=== PATIENT | female | born 1965 | race Two or more races ===

== ENCOUNTER 2025-06-07 07:19 | Emergency (ER) | payer MEDICAID, SELFPAY ==
[2025-06-07 07:32] VITALS: BP 158/77; PULSE 63; RESP 17; TEMP 36.8; O2SAT 95; BMI 24.0
[2025-06-07] MEDS: TETRACAINE PF OP SOL 0.5% 4 ML DRPETTE 1 DROP LEFT EYE (07:44)
[2025-06-07] MEDS: FLUORESCEIN SOD 1 MG STRP LEFT EYE (07:44)
--- NOTE | 2025-06-07 07:48 | EDNOTE_ITS ---
<Statement entered by Bailey Naranjo MD - 06/22/25 17:42> As co-signing physician, I was present and available for consult prn. I concur with the plan and care as documented by the midlevel provider. ED Eye Problem RME/HPI General Chief complaint: Eye Problems Stated complaint: SOMETHING WENT IN R) EYE Time Seen by Provider: 06/07/25 07:37 Arrival date/time: 06/07/25 07:19 60-year-old female presents to the emergency department today stating she got something in her right eye patient reports that she was doing yard work since yesterday and has had a foreign body sensation since yesterday Limitations: no limitations Related Data Previous Rx's ?Medication ?Instructions ?Recorded erythromycin 5 mg/gram (0.5 %) eye 1.25 cm ophthalmic (eye) QID 5 06/07/25 ointment days #3.5 grams Allergies Allergy/AdvReac Type Severity Reaction Status Date / Time No Known Allergies Allergy Verified 06/07/25 07:24 Review of Systems Review of Systems Systems Reviewed: All systems reviewed, normal except as documented Constitutional Constitutional: Reports system reviewed and no additional complaints, except as documented, Denies fever(s) and Denies headache(s) Eyes Eyes: Reports system reviewed and no additional complaints, except as documented, Denies blurry vision and Reports other (Foreign body sensation right eye) ENT Ears, Nose, Mouth, and Throat: Reports system reviewed and no additional complaints, except as documented, Denies headache(s), Denies nasal congestion and Denies nasal discharge Cardiovascular Cardiovascular: Reports system reviewed and no additional complaints, except as documented, Denies chest pain and Denies dyspnea Respiratory Respiratory: Reports system reviewed and no additional complaints, except as documented, Denies chest congestion, Denies cough and Denies dyspnea Gastrointestinal Gastrointestinal: Reports system reviewed and no additional complaints, except as documented and Denies abdominal pain Integumentary/Breasts Skin/Breast: Reports system reviewed and no additional complaints, except as documented and Denies rash Neurologic Neurologic: Reports system reviewed and no additional complaints, except as documented, Reports as per HPI and Denies headache(s) Past Medical History Social History SMOKING STATUS: Never smoker ED Exam General Limitations: Present no limitations General appearance: Present alert and in no apparent distress Head Head exam: Present atraumatic, normocephalic and normal inspection Eye Eye exam: Present PERRL and EOMI Expanded Eye Exam Eyelids: left: normal inspection Sclera/Conjunctival: right: foreign body ENT ENT exam: Present normal exam, normal oropharynx and mucous membranes moist Neck Neck exam: Present normal inspection, full ROM and trachea midline Chest Chest inspection: Present normal inspection and symmetric chest wall rise Respiratory Respiratory exam: Present normal lung sounds bilaterally Cardiovascular Cardiovascular exam: Present regular rate, normal rhythm and normal heart sounds Abdominal Exam Abdominal exam: Present soft and normal bowel sounds Extremities Exam Extremities exam: Present normal inspection and full ROM Back Exam Back exam: Present normal inspection and full ROM Neurological Exam Neurological exam: Present alert, oriented X3 and CN II-XII intact Psychiatric Psychiatric exam: Present normal affect and normal mood Skin Skin exam: Present warm, dry, intact and normal color Course Quality Measures none Orders Category Date Time Status ED Eye Irrigation ONCE Care 06/07/25 07:38 Completed Sandoval Lamp to Bedside X1 Care 06/07/25 07:38 Completed Fluorescein Sodium [Bio-Danuta] Med 06/07/25 07:38 Discontinued 1 mg LEFT EYE X1 ONE TETRACAINE Op Ivanna 0.5% [Pontocaine Op Ivanna 0.5%] Med 06/07/25 07:38 Discontinued 1 drop LEFT EYE X1 ONE Vital Signs Vital signs: Vital Signs Temperature 98.3 F 06/07/25 07:32 Pulse Rate 63 06/07/25 07:32 Respiratory Rate 17 06/07/25 07:32 Blood Pressure 158/77 H 06/07/25 07:32 Pulse Oximetry (%) 95 06/07/25 07:32 Oxygen Delivery Method Room Air 06/07/25 07:32 O2 saturation 95% room air within the limits PROCEDURES: Sandoval Lamp Exam Right eye: Flourescein uptake:: Yes Sandoval Lamp Findings: Other (Foreign body right eye) Additional comments: No abrasion or laceration Eye MDM Narrative MDM Narrative:: 60-year-old female presents to the emergency department today stating she got something in her right eye patient reports that she was doing yard work since yesterday and has had a foreign body sensation since yesterday Clinically patient well-appearing does not appear look toxic no acute distress Patient does have a foreign body in her right eye which was flushed out after anesthetizing the eye with tetracaine Sandoval lamp performed no acute lacerations abrasions noted pupil responses normal Patient reports no disturbances in vision reports complete relief of symptoms Patient discharged home in no distress to follow-up with primary care doctor in the next 24 to 48 hours and for any worsening symptoms to return to the ER immediately Patient data External records reviewed:: [facility] previous records Clinical information provided by:: patient Social determinants that could affect healthcare access:: none Patient has the following chronic illnesses:: See history How is presenting disease/condition affected by chronic disease/condition?: uneffected by Evaluation data The following diagnostics were reviewed and interpreted by me:: other (specify) Lab and/or radiology exams considered but not ordered:: Considered and not ordered Interpretation Summary: N/A Medications / Prescriptions Medications or Prescriptions considered but not ordered:: Given Medication administrations:: Medication Administration History Discontinued Medications Fluorescein Sodium (Fluorescein Sod 1 Mg Strp) 1 mg LEFT EYE X1 ONE Stop: 06/07/25 07:39 Last Admin: 06/07/25 07:44 Dose: 1 mg Documented By: DO Tetracaine HCl (Tetracaine Pf Op Ivanna 0.5% 4 Ml Drpette) 1 drop LEFT EYE X1 ONE Stop: 06/07/25 07:39 Last Admin: 06/07/25 07:44 Dose: 1 drop Documented By: DO Given Consultations Consultation(s) initiated? (list below): No Diagnosis Eye Problem Differential Diagnosis: corneal abrasion, conjunctivitis, corneal ulcer and ruptured globe Most likely diagnosis given after review of the tests above:: Foreign body sensation right eye Admission Indicated Admission indicated?: not indicated Admission Request Was there a request for admission?: No Disposition Plan Disposition Plan: Discharge Discharge Attestation Discharge Attestation: The patient and all family members were given an opportunity to ask questions and understood the discharge instructions. Discharge instructions specifically effects, indications for sooner follow up or return to the emergency department, and the expected course of current diagnosis. Patient condition: Stable Discharge Plan Plan Patient Disposition: HOME (Self Care) Discharge Disposition comment: stable Prescriptions/Referrals Prescriptions/Med Rec: New erythromycin 5 mg/gram (0.5 %) ointment 1.25 cm OPHTHALMIC QID 5 Days Qty: 3.5 0RF Problem List Clinical Impression: Foreign body in eye Patient/Caregiver Discharge Instructions Additional Instructions: Please follow up with your primary care doctor in the next 24-48hrs for any worsening symptoms return here immediately Print Language: Polish Stand Alone Forms: Chelsey Award Info., Patient Portal Info Letter PA/[employer] Supervising Physician PA/[employer] Supervising Physician: dr naranjo
== END 2025-06-07 08:00 | disposition home or self-care (01) ==
LOC: SERX 08:07
PROVIDERS: Emergency Provider Nurse Practitioner Primary Care; PCP Physician Assistant
DX: T15.11XA Foreign body in conjunctival sac, right eye, initial encounter (principal); W44.9XXA Unspecified foreign body entering into or through a natural orifice, initial encounter
CPT/HCPCS: 99282